=== PATIENT | male | born 1945 | race Caucasian/White ===

== ENCOUNTER 2018-06-06 17:00 | Outpatient (CLI) | payer MEDICARE | END 2018-06-06 17:01 | disposition home or self-care (01) | LOC: SLEEPLAB 17:00 | PROVIDERS: ATTEND Internal Medicine | DX: G47.33 Obstructive sleep apnea (adult) (pediatric) (principal); R06.83 Snoring; I10 Essential (primary) hypertension; G47.00 Insomnia, unspecified; G47.31 Primary central sleep apnea; E66.9 Obesity, unspecified; Z68.34 Body mass index [BMI] 34.0-34.9, adult | CPT/HCPCS: 88305; 95806 ==

== ENCOUNTER 2018-06-25 20:30 | Outpatient (CLI) | payer MEDICARE | END 2018-06-25 20:31 | disposition home or self-care (01) | LOC: SLEEPLAB 20:30 | PROVIDERS: ATTEND Internal Medicine | DX: G47.33 Obstructive sleep apnea (adult) (pediatric) (principal); I10 Essential (primary) hypertension; R06.83 Snoring; G47.10 Hypersomnia, unspecified; E66.9 Obesity, unspecified; Z68.34 Body mass index [BMI] 34.0-34.9, adult | CPT/HCPCS: 95811 ==